=== PATIENT | female | born 1970 | race Caucasian/White ===

== ENCOUNTER → 2017-10-19 | Outpatient (CLI) | payer BC ==
[~2017-10-19] MED LIST: PRILOSEC10 MG PO; PROAIR HFA0.09 MG/AC IH; RT ADVAIR 228 DISKUS IH; SPRINTEC 35 MCG1 TAB PO; SYNTHROID0.088 MG/T PO
== END ==
LOC: MC.RAD 10:16
DX: Z12.31 Encounter for screening mammogram for malignant neoplasm of breast (principal)

== ENCOUNTER → 2018-12-04 | Outpatient (CLI) | payer BC | LOC: MC.RAD 09:39 | DX: Z12.31 Encounter for screening mammogram for malignant neoplasm of breast (principal) ==

== ENCOUNTER → 2020-01-16 | Outpatient (CLI) | payer BC | LOC: MC.RAD 13:36 | DX: Z12.31 Encounter for screening mammogram for malignant neoplasm of breast (principal) ==

== ENCOUNTER → 2021-01-19 | Outpatient (CLI) | payer BC | LOC: MC.RAD 07:51 | DX: Z12.31 Encounter for screening mammogram for malignant neoplasm of breast (principal) ==

== ENCOUNTER → 2022-03-18 | Outpatient (CLI) | payer BC | LOC: MC.RAD 07:48 | DX: Z12.31 Encounter for screening mammogram for malignant neoplasm of breast (principal) ==

== ENCOUNTER → 2023-03-18 | Outpatient (CLI) | payer BC | LOC: MC.RAD 07:54 | DX: Z12.31 Encounter for screening mammogram for malignant neoplasm of breast (principal) ==

== ENCOUNTER → 2024-03-20 | Outpatient (CLI) | payer BC | LOC: MC.RAD 07:46 | DX: Z12.31 Encounter for screening mammogram for malignant neoplasm of breast (principal) ==